=== PATIENT | male | born 1970 | race American Indian/Alaskan Native ===

== ENCOUNTER 2017-11-27 11:11 | Emergency (ER) | payer SELFPAY ==
[2017-11-27 12:28] LABS: Basophils % (Auto) 0.6 % (0.0-1.8); Eosinophils # (Auto) 0.1 K/mm3 (0.0-0.4); Eosinophils % (Auto) 1.4 % (0.0-4.3); Lymphocytes # (Auto) 2.4 K/mm3 (1.2-5.4); Lymphocytes % (Auto) 29.9 % (13.4-35.0); Mean Corpuscular HGB Conc 36 % (32-34); Mean Corpuscular Hemoglobin 31 pg (28-32); Mean Corpuscular Volume 88 fl (84-94); Monocytes # (Auto) 0.9 K/mm3 (0.0-0.8); Platelet Count 310 K/mm3 (140-440); Red Blood Count 5.22 M/mm3 (3.65-5.03); Red Cell Distribution Width 14.4 % (13.2-15.2)
--- NOTE | 2017-11-27 12:37 | Emergency Department Report ---
ED Alcohol HPI - General Chief Complaint: Alcohol Stated Complaint: DETOX Time Seen by Provider: 11/27/17 12:35 Source: patient Mode of arrival: Ambulatory Limitations: No Limitations - History of Present Illness Initial Comments: Patient is here requesting for detoxification from alcohol and cocaine abuse. He denies any other medical complaints at this time. Said he's last alcohol was yesterday. Complaint: alcohol dependence Last Drink: unknown -: days(s) (1) Chronic Alcohol Use: Yes Previous Visits for Alcohol Intoxication?: No Recent Trauma: No Associated Symptoms: denies other symptoms Treatments Prior to Arrival: none - Related Data Allergies Allergy/AdvReac Type Severity Reaction Status Date / Time No Known Allergies Allergy Unverified 11/27/17 11:12 ED Review of Systems ROS: Stated complaint: DETOX Other details as noted in HPI Comment: All other systems reviewed and negative Constitutional: denies: chills, fever Eyes: denies: eye pain ENT: denies: ear pain Respiratory: denies: cough, orthopnea, shortness of breath Cardiovascular: denies: chest pain, palpitations Endocrine: no symptoms reported Gastrointestinal: denies: abdominal pain, nausea, vomiting, diarrhea Genitourinary: denies: urgency, dysuria, frequency Musculoskeletal: denies: back pain, joint swelling Skin: denies: rash, lesions Neurological: denies: headache, weakness, numbness Psychiatric: denies: anxiety, depression Hematological/Lymphatic: denies: easy bleeding, easy bruising ED Past Medical Hx - Past Medical History Previous Medical History?: No - Surgical History Past Surgical History?: No - Social History Smoking Status: Current Every Day Smoker Substance Use Type: Alcohol, Cocaine ED Physical Exam - General Limitations: No Limitations General appearance: alert, in no apparent distress, obese - Head Head exam: Present: atraumatic, normocephalic, normal inspection - Eye Eye exam: Present: normal appearance, PERRL, EOMI Pupils: Present: normal accommodation - ENT ENT exam: Present: normal exam, normal orophraynx, mucous membranes moist - Neck Neck exam: Present: normal inspection, meningismus, full ROM - Respiratory Respiratory exam: Present: normal lung sounds bilaterally. Absent: respiratory distress, wheezes, rales, rhonchi, stridor - Cardiovascular Cardiovascular Exam: Present: regular rate, normal rhythm, normal heart sounds - GI/Abdominal GI/Abdominal exam: Present: soft, normal bowel sounds. Absent: distended, tenderness, guarding, rebound - Extremities Exam Extremities exam: Present: normal inspection, full ROM, normal capillary refill - Back Exam Back exam: Present: normal inspection, full ROM. Absent: tenderness - Neurological Exam Neurological exam: Present: alert, oriented X3, CN II-XII intact - Psychiatric Psychiatric exam: Present: normal affect, normal mood - Skin Skin exam: Present: warm, dry, intact, normal color. Absent: rash ED Course Vital Signs 11/27/17 11:12 Temperature 98.1 F Pulse Rate 87 Respiratory 18 Rate Blood Pressure 136/80 O2 Sat by Pulse 98 Oximetry - Reevaluation(s) Reevaluation #1: 11/27/17 14:37 Patient was provided with outpatient resources on how to follow up for his alcohol and cocaine problems. ED Medical Decision Making - Lab Data Result diagrams: 11/27/17 11:55 11/27/17 11:55 - Radiology Data Radiology results: report reviewed - Medical Decision Making Alcohol abuse. Cocaine abuse. Critical care attestation.: If time is entered above; I have spent that time in minutes in the direct care of this critically ill patient, excluding procedure time. ED Disposition Clinical Impression: Alcohol abuse, Cocaine abuse, Marijuana abuse Disposition: DC-01 TO HOME OR SELFCARE Is pt being admited?: No Does the pt Need Aspirin: No Condition: Stable Instructions: Alcohol Withdrawal (ED), Abuse of Alcohol (ED), Medicinal Use of Cannabis (ED), Cocaine Abuse (ED) Additional Instructions: You have been given resources on how to follow up for alcohol and drug abuse as an outpatient. Please follow up with places you have been referred to get help regarding your drug and alcohol dependence problem. You have also been advised to please stop drinking alcohol and using drugs including cocaine and marijuana. Return to the emergency room if her condition worsens. Referrals: PRIMARY CARE, [Primary Care Provider] - 3-5 Days ELISHA PARIS JR, MD [Staff Physician] - 3-5 Days Time of Disposition: 14:41
[2017-11-27 12:43] LABS: BUN/Creatinine Ratio 14; Blood Urea Nitrogen 13 mg/dL (9-20); Calcium 8.8 mg/dL (8.4-10.2); Hemolysis Index 126
[2017-11-27 12:58] LABS: Bilirubin,Urine NEG (Negative); Blood,Urine NEG (Negative); Color,Urine Yellow (Yellow); Mucus,Urine 2+ /HPF
[2017-11-27 12:59] LABS: Hemoglobin 16.4 gm/dl (11.8-15.2)
[2017-11-27 13:22] LABS: Amphetamine Screen,Urine PRESUMPTIVE NEGATIVE; Benzodiazepines Screen,Urine PRESUMPTIVE NEGATIVE; Methadone Screen,Urine PRESUMPTIVE NEGATIVE; Opiate Screen,Urine PRESUMPTIVE NEGATIVE
[2017-11-27 13:33] LABS: Cannabinoid Screen,Urine PRESUMPTIVE POSITIVE; Cocaine Screen,Urine PRESUMPTIVE POSITIVE
[2017-11-27 14:13] LABS: Alanine Aminotransferase 64 units/L (7-56); Albumin 3.9 g/dL (3.9-5); Bilirubin,Direct < 0.2 mg/dL (0-0.2)
[2017-11-27 16:19] VITALS: BP 127/71
== END 2017-11-27 16:22 | disposition home or self-care (01) ==
LOC: ED 11:11
DX: F10.239 Alcohol dependence with withdrawal, unspecified (principal); F14.23 Cocaine dependence with withdrawal; F12.10 Cannabis abuse, uncomplicated; F17.200 Nicotine dependence, unspecified, uncomplicated; Z79.899 Other long term (current) drug therapy
CPT/HCPCS: 36415; 80048; 80074; 80307; 81001; 85025; 99283; G0480; 80320